=== PATIENT | female | born 1950 | race Caucasian/White ===

== ENCOUNTER 2023-05-24 10:22 | Emergency (ER) | payer MEDICARE, MEDICAID ==
[~2023-05-24] VITALS: Ht 157.5 cm; Wt 61.0 kg
[2023-05-24 10:35] VITALS: TEMP 98.4; O2SAT 99
[2023-05-24 10:45] VITALS: BP 126/74; PULSE 72; RESP 16
[2023-05-24] MEDS ORDERED: METHOCARBAMOL 500MG TABLET PO ONE (10:45)
[2023-05-24] MEDS ORDERED: IBUPROFEN 600MG TABLET PO ONE (10:45)
[2023-05-24] MEDS ORDERED: METH-653 MT (11:39)
[2023-05-24] MEDS ORDERED: IBUP-2029 MT (11:39)
== END 2023-05-24 12:48 | disposition home or self-care (01) ==
LOC: ER 10:25
DX: S20.219A Contusion of unspecified front wall of thorax, initial encounter (principal); J44.1 Chronic obstructive pulmonary disease with (acute) exacerbation; F12.10 Cannabis abuse, uncomplicated; V49.9XXA Car occupant (driver) (passenger) injured in unspecified traffic accident, initial encounter; Y93.89 Activity, other specified; Y92.89 Other specified places as the place of occurrence of the external cause; Y99.8 Other external cause status
CPT/HCPCS: 71045; 93005; 99283